=== PATIENT | male | born 1955 | race Two or more races ===

== ENCOUNTER 2023-10-26 07:26 | Outpatient (CLI) | payer OTHER | END 2023-10-26 07:36 | disposition home or self-care (01) | LOC: SONOGRAMA 07:26 | PROVIDERS: ATTEND Physical Medicine & Rehabilitation Hospice and Palliative Medicine | DX: M25.511 Pain in right shoulder (principal); M75.101 Unspecified rotator cuff tear or rupture of right shoulder, not specified as traumatic; M75.31 Calcific tendinitis of right shoulder ==